=== PATIENT | female | born 1995 | race Two or more races ===

== ENCOUNTER 2016-10-16 12:56 | Emergency (ER) | payer MEDICAID ==
[~2016-10-16] VITALS: Ht 154.9 cm; Wt 77.1 kg
[2016-10-16 13:15] VITALS: BP 123/74
[2016-10-16] MEDS ORDERED: CYCL10TA2 PO (13:42)
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
== END 2016-10-16 13:45 | disposition home or self-care (01) ==
LOC: ER 12:56
DX: R07.89 Other chest pain (principal); M54.6 Pain in thoracic spine; F17.210 Nicotine dependence, cigarettes, uncomplicated; Z87.19 Personal history of other diseases of the digestive system; Z91.040 Latex allergy status; Z91.048 Other nonmedicinal substance allergy status; V49.88XA Car occupant (driver) (passenger) injured in other specified transport accidents, initial encounter; Y93.89 Activity, other specified; Y99.8 Other external cause status; Y92.488 Other paved roadways as the place of occurrence of the external cause
CPT/HCPCS: 99283